=== PATIENT | male | born 1945 | race Caucasian/White ===

== ENCOUNTER 2018-07-22 07:15 | Inpatient (IN) | payer OTHER ==
[2018-07-22] MEDS ORDERED: oxyCODONE IR 5 MG TAB PO PRN (18:34)
[2018-07-22] MEDS ORDERED: ACETAMINOPHEN 325 MG TAB PO PRN (18:34)
[2018-07-22] MEDS ORDERED: ONDANSETRON 4 MG/2 ML VIAL IVP PRN (18:34)
[2018-07-22] MEDS ORDERED: ONDANSETRON DISINTEGRATING 4 MG TAB PO PRN (18:34)
[2018-07-22] MEDS ORDERED: HYDROmorphONE/DILAUDID 1 MG/ML INJ IVP PRN (19:04)
--- NOTE | 2018-07-22 19:11 | PDGENHP ---
Addendum entered and electronically signed by Heather Golden NP 07/22/18 19:35 : Update: Last alcohol drink was last night. He had a beer and champagne. Original Note: <Heather Golden - Last Filed: 07/22/18 19:31> History and Physical - Chief Complaint Oblique nondisplaced left femoral neck fracture s/p mechanical fall - History of Present Illness 72 y/o male presents as a direct admit from [facility] in [place] after enduring a mechanical fall w/injury. He was getting out of the shower, his bath mat slipped out from underneath him and he fell subsequently suffering an oblique nondisplaced left femoral neck fracture. Dr. Vazquez performed his right hip surgery 7 years ago and requested he do the same for this surgery therefore he was transferred to [facility] where Dr. Vazquez will evaluate pt in AM. Pt denies hitting his head or LOC, no FORD, vision changes. No pain to wrists/ elbows. No CP, SOB, fever or chills. Endorses the inability to place weight on his left lower extremity and 4-5/10 severity of dull aching pain. He is being admitted for treatment and monitoring. History Information - Allergies/Home Medication List Allergies/Adverse Reactions: NSAIDS (Non-Steroidal Anti-Inflamma [Nsaids] Allergy (Intermediate, Verified 12/02 19:13) HIVES/RASH meperidine HCl [From Demerol] Allergy (Mild, Verified 07/22/18 19:13) NAUSEA Home Medications: Lisinopril [Zestril 20 mg (*)] 20 mg PO HS 05/15/15 [Last Taken 07/21/18] Multivitamins [Multivitamin (*)] 1 tab PO HS 05/15/15 [Last Taken 07/21/18] Acetaminophen [Tylenol Arthritis] 650 mg PO DAILY PRN 07/22/18 [Last Taken Unknown] Aspirin [Aspirin 81mg (*)] 81 mg PO HS 07/22/18 [Last Taken 07/21/18] Atorvastatin Calcium [Lipitor 20 mg (*)] 20 mg PO HS 07/22/18 [Last Taken ] Ibuprofen [Motrin (*)] 200 mg PO DAILY PRN 07/22/18 [Last Taken Unknown] Primidone [Mysoline 50mg (RX)] 50 mg PO BID 07/22/18 [Last Taken 07/22/18 09:00] Sildenafil Citrate [Revatio 20 MG (*)] 20 mg PO DAILY PRN 07/22/18 [Last Taken 07/20/18] Valacyclovir HCl [Valtrex] 1,000 mg PO DAILY PRN 07/22/18 [Last Taken Unknown] I have personally reviewed and updated: family history, medical history, social history, surgical history - Past Medical History arthritis, cancer (Prostate ), hypertension, hyperlipidemia Additional medical history: Sciatica. Tremor - Surgical History Reports: cancer surgery (MOHS; radial prostatectomy) Additional surgical history: Laminectomy. Several orthopedic sx including foot , hand, hip and knee surgeries - Family History Positive for: CAD Additional family history: Multiple sclerosis - Social History Smoking Status: Never smoked Alcohol Use: Heavy (4-5 beers/day 5-6 days out of the week) Drug Use: None Additional social history: Adopted. Was at [employer] in [place] celebrating him and his 's 50th anniversary. Lives in [place]. Likes to hike and golf. Review of Systems Review of Systems: ROS: 10pt was reviewed & negative except for what was stated in HPI & below Physical Exam Physical Exam: Lab data and imaging were reviewed. WHITE BLOOD CELL COUNT 5.6 4.0-11.0 10*9/L RED BLOOD CELL COUNT, BLOOD 4.77 4.76-6.09 10*12/L HEMOGLOBIN 15.0 14.3-18.1 g/dL HEMATOCRIT 44.4 39.2-53.0 % MEAN CORPUSCULAR VOLUME 93.1 80.0-100.0 fL MEAN CORPUSCULAR HEMOGLOBIN 31.4 27.5-35.1 pg MEAN CORPUSCULAR HEMOGLOBIN CONCENTRATION 33.8 32.0-36.0 g/dL PLATELET COUNT 175 150-400 10*9/L RED CELL DISTRIBUTION WIDTH CV 13.6 11.7-14.2 % NRBC PERCENT 0.0 0 % NRBC ABSOLUTE 0.00 0 10*9/L NEUTROPHIL, SEGMENTED % (AUTO DIFFERENTIAL) 78.8 % LYMPHOCYTE % (AUTO DIFFERENTIAL) 13.1 % MONOCYTE % (AUTO DIFFERENTIAL) 6.8 % EOSINOPHIL % (AUTO DIFFERENTIAL) 0.7 % BASOPHIL % (AUTO DIFFERENTIAL) 0.4 % GRANULOCYTE, IMMATURE % (AUTO DIFFERENTIAL) 0.2 % NEUTROPHILS ABSOLUTE (AUTO DIFFERENTIAL) 4.4 1.8-6.6 10*9/L LYMPHOCYTES ABSOLUTE (AUTO DIFFERENTIAL) 0.7 1.0-4.8 Low 10*9/L MONOCYTES ABSOLUTE (AUTO DIFFERENTIAL) 0.4 0.2-0.9 10*9/L EOSINOPHILS ABSOLUTE (AUTO DIFFERENTIAL) 0.0 0.0-0.4 10*9/L BASOPHIL ABSOLUTE (AUTO DIFFERENTIAL) 0.0 0.0-0.2 10*9/L GRANULOCYTE, IMMATURE ABSOLUTE (AUTO DIFFERENTIAL) 0.0 0.0-0.1 10*9/L SODIUM -POCT 138 137-145 mmol/L POTASSIUM -POCT 4.4 3.5-5.5 mmol/L CHLORIDE -POCT 105 98-109 mmol/L BLOOD UREA NITROGEN -POCT 14 7-20 mg/dL GLUCOSE -POCT 113 60-100 High mg/dL CREATININE -POCT 1.0 0.6-1.3 mg/dL IONIZED CALCIUM - POCT ISTAT 4.8 4.5-5.3 mg/dL TCO2 ARTERIAL -POCT ISTAT 23 23-31 mmol/L ANION GAP -POCT 16 10-20 mmol/L EGFR NON -POCT >60 >=60 mL/min/1.73 "square meters" CXR: No acute cardiopulmonary process Hip/Pelvis x-ray: as noted in HPI w/ right hip hardware not affected and intact. Temp Pulse Resp BP Pulse Ox 36.8 C 74 16 185/90 H 95 07/22/18 18:00 07/22/18 18:00 07/22/18 18:00 07/22/18 18:00 07/22/18 18:00 Constitutional: no apparent distress, appears nourished, other (Pain w/movement) Eyes: PERRL, anicteric sclera, EOMI Ears, Nose, Mouth, Throat: moist mucous membranes, hearing normal, ears appear normal, no oral mucosal ulcers Cardiovascular: regular rate and rhythym, no murmur, rub, or gallop, No edema Peripheral Pulses: 2+: dorsalis-pedis (R), dorsalis-pedis (L) Respiratory: no respiratory distress, no rales or rhonchi, clear to auscultation Gastrointestinal: normoactive bowel sounds, soft, non-tender abdomen, no palpable masses Genitourinary: no bladder fullness, no bladder tenderness Skin: warm, normal color, no rashes or abrasions, no fluctuance, no induration, No mottled Musculoskeletal: pain with ROM (LLE; able to wiggle toes, +DF/PF, sensation intact. Pain in groin and radiates to lower back) Neurologic: AAOx3, sensation intact bilaterally, CN II-XII Intact Psychiatric: interacting appropriately, not anxious, not encephalopathic, thought process linear Lymph, Heme, Immunologic: no cervical LAD, no supraclavicular LAD Assessment & Plan Plan: 72 y/o male w/hx of HTN, HLD and sciatica presents as a direct admit from the [facility] in [place] ER d/t an injury w/mechanical fall subsequently fracturing his left femur. Dr. Vazquez replaced his right hip 7 years ago and he requested Dr. Vazquez perform the surgery hence pt being admitted to our facility. His vitals are the following: BP 185/90, HR 74, 16 resp, 95%RA 36.8. Labwork from [facility] unremarkable. #Left oblique nondisplaced femoral neck fracture -Ortho has been consulted. Dr. Vazquez to evaluate pt in AM and most likely perform surgery hence pt will be NPO at midnight tonight -Pain management PO/IVP PRN -NWB status to LLE -CBC/CMP/INR in AM -IS -PT/OT to evaluate and treat #Etoh abuse: Reports drinking 4-5 beers a night 5-6 days out of the week. -CIWA scale #HTN: cont to monitor. On lisinopril Diet: Regular, NPO at midnight tonight VTE ppx: SCDs Code: Full Dispo: Admit to inpatient <Nabila Chun - Last Filed: 07/22/18 23:07> History and Physical - History of Present Illness Review of Systems Review of Systems: Physical Exam Physical Exam: Temp Pulse Resp BP Pulse Ox 37.0 C 77 18 170/94 H 94 07/22/18 20:46 07/22/18 20:46 07/22/18 20:46 07/22/18 20:46 07/22/18 20:46 Assessment & Plan Plan: Patient seen and evaluated independently, care plan reviewed with RUBY Golden, agree with her asessement and plan as above, please see separate note for further details.
[2018-07-22] MEDS ORDERED: SILDENAFIL CITRATE 20 MG TAB PO PRN (19:27)
[2018-07-22] MEDS ORDERED: valACYclovir 500 MG TAB PO PRN (19:30)
[2018-07-22] MEDS ORDERED: FLUMAZENIL 0.5 MG/5 ML MDV IVP PRN (19:35)
[2018-07-22] MEDS ORDERED: LORazepam 2 MG/ML INJ IVP PRN (19:35)
[2018-07-22] MEDS: ATORVASTATIN CALCIUM 20 MG TAB PO SCH (20:16)
[2018-07-22] MEDS: LISINOPRIL 20 MG TAB PO SCH (20:16)
[2018-07-22] MEDS: MULTIVITAMINS 1 EACH TAB PO SCH (20:16)
[2018-07-22] MEDS: PRIMIDONE 50 MG TAB PO SCH (20:17)
--- NOTE | 2018-07-22 23:07 | HOSPPROG ---
Hospitalist Progress Note Assessment/Plan: 72 y/o male w/hx of HTN, HLD and sciatica presents as a direct admit from the [facility] in [place] s/p mechanical fall with acute left femur fracture and plan for surgical repair by Dr. Vazquez. #acute nondisplaced left femoral neck fracture -personally reviewed pelvic xray -ortho consulted, likely to OR in am, no reason to defer surgical intervention at this time for medical reasons -pain medication, pt/ot in post op period #Etoh abuse: risky drinking behaviors, denies withdrawal sxs -CIWA scale #HTN: cont lisinopril Diet: Regular, NPO at midnight tonight VTE ppx: SCDs Code: Full Dispo: Admit to inpatient Care plan reviewed with RUBY Golden, please see her note for further details. Objective: Vital Signs Temp Pulse Resp BP Pulse Ox 37.0 C 77 18 170/94 H 94 07/22/18 20:46 07/22/18 20:46 07/22/18 20:46 07/22/18 20:46 07/22/18 20:46 07/21/18 07/22/18 07/23/18 05:59 05:59 05:59 Output Total 275 Balance -275 ICD10 Worksheet Patient Problems: Problems Problem Status Onset Primary localized osteoarthritis of right knee Acute
[2018-07-23 05:24] LABS: PLATELET COUNT 181 10^3/uL (150-400)
[2018-07-23 05:31] LABS: INR 0.99 (0.83-1.16); PROTIME(PATIENT) 12.7 SEC (12.0-15.0)
[2018-07-23] MEDS ORDERED: ceFAZolin 2 GM/DEXTROSE 100 ML IV ONE (06:00)
[2018-07-23] MEDS ORDERED: DEXAMETHASONE 4 MG/ML VIAL IVP ONE (06:00)
[2018-07-23] MEDS ORDERED: FAMOTIDINE 20 MG TAB PO ONE (06:00)
[2018-07-23] MEDS ORDERED: TRANEXAMIC ACID 3,000 MG in NS (SYRINGE) 50 ML IRR ONE (06:00)
[2018-07-23] MEDS ORDERED: ACETAMINOPHEN 325 MG TAB PO ONE (06:00)
[2018-07-23] MEDS ORDERED: ROPIVACAINE 0.2% 80 MG, EPINEPHrine 0.2 MG, KETOROLAC TROMETHAMINE 30 MG in SYRINGE 0 ML IU ONE (06:00)
[2018-07-23] MEDS ORDERED: LR 1,000 ML IV ONE (06:05)
[2018-07-23] MEDS ORDERED: TRANEXAMIC ACID 3,000 MG/50 ML BAG IRR ONE (06:32)
[2018-07-23] MEDS ORDERED: MIDAZOLAM 2 MG/2 ML VIAL IVP ONE (07:05)
--- NOTE | 2018-07-23 07:07 | PDANEPAE ---
ANE Past Medical History - Cardiovascular History Hx Hypertension: Yes Hx Arrhythmias: No Hx Chest Pain: No Hx Coronary Artery / Peripheral Vascular Disease: No Hx CHF / Valvular Disease: No Hx Palpitations: No - Pulmonary History Hx COPD: No Hx Asthma/Reactive Airway Disease: No Hx Recent Upper Respiratory Infection: No Hx Oxygen in Use at Home: No Hx Sleep Apnea: No Sleep Apnea Screening Result - Last Documented: Positive - Neurologic History Hx Cerebrovascular Accident: No Hx Seizures: No Hx Dementia: No - Endocrine History Hx Diabetes: No Obesity: mild - Renal History Hx Renal Disorders: No - Liver History Hx Hepatic Disorders: No - Neurological & Psychiatric Hx Hx Neurological and Psychiatric Disorders: No - Cancer History Hx Cancer: Yes Cancer History Comment: PROSTATE - Congenital Disorder History Hx Congenital Disorders: No - GI History GERD: no Hx Gastrointestinal Disorders: Yes Gastrointestinal History Comment: DIVERTICULOSIS. PREV REMVL COLON POLYPS - Other Health History Other Health History: NEG - Chronic Pain History Chronic Pain: Yes (RT KNEE AND LUMBAR REGION) - Surgical History Prior Surgeries: RT TOTAL HIP 04/2015. RT KNEE SCOPE. CERVICAL FUSION. LAMINECTOMY L4-5. GENE CATARACTS. RADICAL PROSTATECTOMY. GENE SHLDR SCOPE. LT THUMB ANE Review of Systems Review of Systems: ANE Patient History - Allergies Allergies/Adverse Reactions: NSAIDS (Non-Steroidal Anti-Inflamma [Nsaids] Allergy (Intermediate, Verified 12/02 19:13) HIVES/RASH meperidine HCl [From Demerol] Allergy (Mild, Verified 07/22/18 19:13) NAUSEA - Home Medications Home medications: home medication list seen and reviewed Home Medications: Lisinopril [Zestril 20 mg (*)] 20 mg PO HS 05/15/15 [Last Taken 07/21/18] Multivitamins [Multivitamin (*)] 1 tab PO HS 05/15/15 [Last Taken 07/21/18] Acetaminophen [Tylenol Arthritis] 650 mg PO DAILY PRN 07/22/18 [Last Taken Unknown] Aspirin [Aspirin 81mg (*)] 81 mg PO HS 07/22/18 [Last Taken 07/21/18] Atorvastatin Calcium [Lipitor 20 mg (*)] 20 mg PO HS 07/22/18 [Last Taken ] Ibuprofen [Motrin (*)] 200 mg PO DAILY PRN 07/22/18 [Last Taken Unknown] Primidone [Mysoline 50mg (RX)] 50 mg PO BID 07/22/18 [Last Taken 07/22/18 09:00] Sildenafil Citrate [Revatio 20 MG (*)] 20 mg PO DAILY PRN 07/22/18 [Last Taken 07/20/18] Valacyclovir HCl [Valtrex] 1,000 mg PO DAILY PRN 07/22/18 [Last Taken Unknown] - NPO status NPO Status: no food or drink >8 hours NPO Since - Liquids (Date): 07/23/18 NPO Since - Liquids (Time): 00:00 NPO Since - Solids (Date): 07/23/18 NPO Since - Solids (Time): 00:00 - Anes Hx Anes Hx: no prior problems - Smoking Hx Smoking Status: Never smoked - Alcohol Use Alcohol Use: Heavy (4-5 beers/day 5-6 days out of the week) - Family Anes Hx Family Hx Anesthesia Complications: NEG ANE Labs/Vital Signs - Labs Result Diagrams: 07/23/18 04:35 07/23/18 04:35 - Vital Signs Blood Pressure: 164/86 Heart Rate: 74 Respiratory Rate: 16 O2 Sat (%): 93 Height: 182.88 cm Weight: 90.265 kg ANE Physical Exam - Airway Neck exam: FROM Mallampati Score: Class 2 Mouth exam: normal dental/mouth exam - Pulmonary Pulmonary: no respiratory distress, no rales or rhonchi, clear to auscultation - Cardiovascular Cardiovascular: regular rate and rhythym, no murmur, rub, or gallop - ASA Status ASA Status: II ANE Anesthesia Plan Anesthesia Plan: GA w LMA (Pt declines SAB.)
[2018-07-23] MEDS ORDERED: MIDAZOLAM 2 MG/2 ML VIAL ONE (07:08)
[2018-07-23] MEDS ORDERED: PROPOFOL 200 MG/20 ML VIAL ONE ×2 (07:15→07:44)
[2018-07-23] MEDS ORDERED: ONDANSETRON 4 MG/2 ML VIAL ONE (07:17)
[2018-07-23] MEDS ORDERED: DEXAMETHASONE 4 MG/ML VIAL ONE ×2 (07:17)
[2018-07-23] MEDS ORDERED: LIDOCAINE 2% 2 ML INJ ONE ×2 (07:37)
[2018-07-23] MEDS ORDERED: ESMOLOL HCL 100 MG/10 ML VIAL IV ONE (07:45)
[2018-07-23] MEDS ORDERED: DEXMEDETOMIDINE HCL 200 MCG in NS 50 ML IV ONE (07:48)
[2018-07-23] MEDS ORDERED: LABETALOL HCL 5 MG/ML 20 ML MDV IVP PRN (07:53)
[2018-07-23] MEDS ORDERED: ENALAPRILAT DIHYDRATE 1.25 MG/ML VIAL IVP PRN (07:53)
[2018-07-23] MEDS ORDERED: NALOXONE HCL 0.4 MG/ML INJ IVP PRN (07:53)
[2018-07-23] MEDS ORDERED: fentaNYL 100 MCG/2 ML INJ IVP PRN (07:53)
[2018-07-23] MEDS ORDERED: ONDANSETRON 4 MG/2 ML VIAL IVP PRN ×2 (07:53→08:44)
[2018-07-23] MEDS ORDERED: PROMETHAZINE HCL 25 MG/ML INJ IVP PRN ×2 (07:53→08:44)
[2018-07-23] MEDS ORDERED: HYDROCODONE/APAP 5/325 TAB PO PRN (07:53)
[2018-07-23] MEDS ORDERED: oxyCODONE IR 5 MG TAB PO PRN ×2 (07:53→08:44)
[2018-07-23] MEDS ORDERED: ACETAMINOPHEN 500 MG TAB PO PRN (07:53)
[2018-07-23] MEDS ORDERED: DIAZEPAM 5 MG/ML 1 ML SYR IVP PRN (07:53)
[2018-07-23] MEDS ORDERED: LR 500 ML IV PRN (07:53)
[2018-07-23] MEDS ORDERED: DEXMEDETOMIDINE HCL 400 MCG in NS 100 ML IV ONE (08:00)
[2018-07-23] MEDS ORDERED: ENALAPRILAT DIHYDRATE 2.5 MG/2 ML VIAL IVP ONE (08:07)
[2018-07-23] MEDS ORDERED: METOPROLOL TARTRATE 5 MG/5 ML INJ ONE (08:11)
[2018-07-23] MEDS ORDERED: METOCLOPRAMIDE 10 MG/2 ML VIAL IVP PRN (08:44)
[2018-07-23] MEDS ORDERED: PROMETHAZINE HCL 25 MG SUPPR PR PRN (08:44)
[2018-07-23] MEDS ORDERED: POLYETHYLENE GLYCOL 3350 17 GM PKT PO PRN (08:44)
[2018-07-23] MEDS ORDERED: BISACODYL 10 MG SUPP PR PRN (08:44)
[2018-07-23] MEDS ORDERED: diphenhydrAMINE 25 MG CAP PO PRN (08:44)
[2018-07-23] MEDS ORDERED: DIPHENOXYLATE/ATROPINE LOMOTIL 1 TAB PO PRN (08:44)
[2018-07-23] MEDS ORDERED: CYCLOBENZAPRINE 10 MG TAB PO PRN (08:44)
[2018-07-23] MEDS ORDERED: LACTULOSE 20 GM/30 ML UDCUP PO PRN (08:44)
[2018-07-23] MEDS ORDERED: TEMAZEPAM 15 MG CAP PO PRN (08:44)
[2018-07-23] MEDS ORDERED: MAGNESIUM HYDROXIDE 30 ML UDCUP PO PRN (08:44)
[2018-07-23] MEDS ORDERED: ONDANSETRON DISINTEGRATING 4 MG TAB PO PRN (08:44)
--- NOTE | 2018-07-23 08:44 | POSTOPPROG ---
Post Op Note Date of Operation: 07/23/18 Surgeon: Ian Vazquez Hollow Core Door Frame Assembler: Madelyn TUBBS Anesthesiologist: Dr. Rickey Moise Anesthesia: GET(General Endotracheal) Pre-op Diagnosis: left femur fracture Post-op Diagnosis: same Indication: left femur fracture Procedure: LTHA Findings: fracture of left femoral neck Inf/Abcess present in the surg proc area at time of surgery?: No EBL: 50-100
[2018-07-23] MEDS ORDERED: LR 1,000 ML IV SCH (09:00)
--- NOTE | 2018-07-23 09:02 | POSTANESTH ---
Post Anesthetic Evaluation Cardiovascular Status: Normal, Stable, Similar to Pre-Op Cond Respiratory Status: Normal, Stable, Similar to Pre-op Cond. Level of Consciousness/Mental Status: Can Participate in Eval, Mildly Sleepy, Arousable Pain Control: Adequate, Prn Tx Ordered Nausea/Vomiting Control: Adequate, Prn Tx Ordered Complications Possibly Related to Anesthesia: None Noted
--- NOTE | 2018-07-23 09:21 | PDMN ---
Medical Necessity Medical necessity: Pt meets inpt criteria per MD order and [facility], Hip Arthroplasty, MCR IP only list, A-2 days. 72 y/o admitted w/L nondisplaced femoral neck fx s/p mech fall, underwent surg intervention: L AINSLEY. Anticipate> 2MN for ongoing management of above.
[2018-07-23] MEDS: THIAMINE HCL 500 MG in NS 100 ML IV SCH (10:43)
[2018-07-23] MEDS: PRIMIDONE 50 MG TAB PO SCH ×2 (10:53→21:04)
[2018-07-23] MEDS: SENNOSIDES/DOCUSATE SODIUM TAB PO SCH ×2 (10:55→21:03)
[2018-07-23] MEDS ORDERED: ceFAZolin 2 GM/DEXTROSE 100 ML IV SCH (14:00)
--- NOTE | 2018-07-23 14:25 | HOSPPROG ---
Hospitalist Progress Note Assessment/Plan: 72 y/o male w/hx of HTN, HLD and sciatica presents as a direct admit from the [facility] in [place] s/p mechanical fall with acute left femur fracture and surgical repair by Dr. Vazquez. First encounter, chart reviewed. #acute nondisplaced left femoral neck fracture -POD#0 -pain medication, pt/ot in post op period #Etoh abuse: -risky drinking behaviors, denies withdrawal sxs -CIWA scale #HTN: -cont lisinopril Diet: Regular VTE ppx: SCDs Code: Full Dispo: Admit to inpatient Subjective: No pain. No specific complaints. Objective: Vital Signs Temp Pulse Resp BP Pulse Ox 37.0 C 74 17 106/50 L 92 07/23/18 13:06 07/23/18 13:06 07/23/18 13:06 07/23/18 13:06 07/23/18 13:06 Laboratory Results 07/23/18 04:35 07/23/18 04:35 07/22/18 07/23/18 07/24/18 05:59 05:59 05:59 Intake Total 300 795 Output Total 625 500 Balance -325 295 PT 12.7 SEC (12.0-15.0) 07/23/18 04:35 INR 0.99 (0.83-1.16) 07/23/18 04:35 - Physical Exam Constitutional: no apparent distress, appears nourished, not in pain Eyes: PERRL, anicteric sclera, EOMI Ears, Nose, Mouth, Throat: moist mucous membranes, hearing normal, ears appear normal Cardiovascular: regular rate and rhythym, No JVD, No edema Respiratory: no respiratory distress, no rales or rhonchi, reduced air movement Gastrointestinal: normoactive bowel sounds, No tenderness, No ascites Skin: warm, normal color, No mottled Musculoskeletal: joint tenderness, pain with ROM, generalized weakness Neurologic: AAOx3 Psychiatric: not anxious, not encephalopathic, poor memory ICD10 Worksheet Patient Problems: Problems Problem Status Onset Primary localized osteoarthritis of right knee Acute
--- NOTE | 2018-07-23 14:29 | ASMTCAGE ---
CAGE Do you feel you ought to Answers: No cut down on your drinking or drug use? Do people annoy you by Answers: No criticizing your drinking or drug use? Do you feel guilty about Answers: No your drinking or drug use? 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 Date Signed: 07/23/2018 02:28 PM Electronically Signed By:Germaine Hitchcock
--- NOTE | 2018-07-23 14:42 | ASMTCMCOM ---
CM Note CM Note Notes: CM spoke with pt in the room. Pt lives with and was admitted for hip fracture after a fall in the bathroom. Pt triggered CAGE screen upon admission because he states he drinks 4 - 6 beers a night. CAGE screen completed and pt has no concerns for alcohol abuse. ETOH resources provided for educational purposes. PT recommending outpatient rehab. Anticipate pt will discharge independently. CM to follow. D/C Plan: Independent Date Signed: 07/23/2018 02:41 PM Electronically Signed By:Germaine Hitchcock
[2018-07-23] MEDS ORDERED: ACETAMINOPHEN 325 MG TAB PO SCH (14:47)
[2018-07-23] MEDS: ceFAZolin 2 GM/DEXTROSE 100 ML IV SCH (17:18)
[2018-07-23] MEDS: ACETAMINOPHEN 325 MG TAB PO SCH ×2 (17:48→23:58)
[2018-07-23] MEDS: MULTIVITAMINS 1 EACH TAB PO SCH (21:03)
[2018-07-23] MEDS: ASPIRIN 81 MG CHEWABLE TAB PO SCH (21:04)
[2018-07-23] MEDS: LISINOPRIL 20 MG TAB PO SCH (21:04)
[2018-07-23] MEDS: ATORVASTATIN CALCIUM 20 MG TAB PO SCH (21:04)
[2018-07-23] MEDS: FAMOTIDINE 20 MG TAB PO SCH (21:04)
--- NOTE | 2018-07-23 21:08 | GCON ---
[f rep st] CONSULTATION ORTHOPEDIC CONSULTATION DATE OF CONSULTATION: 07/23/2018 REASON FOR CONSULTATION: Left femoral neck fracture. HISTORY OF PRESENT ILLNESS: The patient is a 72-year-old gentleman, well known to me, who sustained a left femoral neck fracture in [place] while celebrating his 50th anniversary. The patient was transferred up to here as he desired care, I had previously taken care of his right femo ral neck fracture and right total knee. He was comfortable. Was evaluated in the prep area. Left l ower extremity was examined. He had pain with external rotation. He was neurovascularly intact. MEDICATIONS: Please see medication list. IMAGING: X-rays were reviewed, which shows a left vertical, unstable femoral neck fracture. ASSESSMENT AND PLAN: The patient is a 72-year-old gentleman with an unstable left femoral neck fract ure. Discussed risks, benefits, operative and nonoperative interventions, arthroplasty ve rsus fixation. Decision was made to proceed with left total hip arthroplasty. Patient expressed und erstanding and informed consent was obtained after discussion of risks, which include bleeding, infec tion, damage to nerves and vessels, need for further surgery, risk for blood clots, blood clots going to his lungs, , stroke, heart attack, and , as well as risk for dislocation, fracture , and leg length discrepancy. The patient expressed understanding and signed the consent form. The plan will be to proceed with a left total hip arthroplasty. /[id number]/MODL
--- NOTE | 2018-07-23 22:28 | GOP ---
[f rep st] OPERATIVE REPORT DATE OF OPERATION: 07/23/2018 SURGEON: Zeb Vazquez MD TRAFFIC SAFETY ADMINISTRATOR: Germaine Morgan P.A.-C PREOPERATIVE DIAGNOSIS: Left hip femoral neck fracture. POSTOPERATIVE DIAGNOSIS: Left hip femoral neck fracture. PROCEDURE PERFORMED: Left total hip arthroplasty with x-ray. FINDINGS: ESTIMATED BLOOD LOSS: 200 cc. INDICATIONS: The patient has left femoral neck fracture. The patient understands the treatment options including continued non-operative care and has selected surgical intervention. The patient has decided to undergo total hip arthroplasty via the direct anterior approach, understanding the risks of the procedure including, but not limited to, neurovascular injury, infection, persistent pain, component wear and loosening, deep venous thrombosis, pulmonary embolism, limb length inequality, hip instability (including dislocation), and intra-operative fractures. DESCRIPTION OF PROCEDURE: After proper identification of the patient including verification and marking the surgical site, the patient was brought to the operating room and placed in the supine position. All bony prominences were well padded. Anesthesia was induced without complication and intravenous prophylactic antibiotics were administered prior to skin incision. The operative leg was placed in the Trumpf Arch table extension and the well leg in a Yellofin leg guerrero. The patient was prepped and draped in the usual sterile fashion. The C-arm was draped for intra-operative fluoroscopy to check acetabular position, femoral component position including leg length and femoral offset. Attention was then drawn to surgical exposure of the hip. An incision was made with a #10 Bard Andrés blade starting 3 cm lateral and 3 cm distal to the anterior superior iliac spine measuring 8-10 cm and coursing distally toward the greater trochanter. The skin and subcutaneous tissues were divided sharply down to the fascia ritika. The fascia ritika was incised in line with the skin incision exposing the underlying tensor fascia ritika muscle. The muscle was bluntly elevated from the fascia and the first extracapsular Cobra retractor was placed laterally at the junction of the superior femoral neck and greater trochanter. The lateral femoral circumflex vessels were identified, cauterized , and divided with the Aquamantys bipolar cautery. The deep investing fascia of the TFL was divided to allow proper mobilization of the muscle preventing damage during the retraction. The reflected head of the rectus femoris muscle was elevated off the anterior hip capsule and a medial Cobra retractor was placed just proximal to the lesser trochanter. The anterior capsulotomy was made sharply from the superolateral acetabulum to the saddle junction of the superior femoral neck and greater trochanter, then coursing inferomedial towards the lesser trochanter. The retractors were then placed in the intracapsular position for femoral neck osteotomy. Corresponding to pre-operative templating, the osteotomy was made with the oscillating saw carefully protecting the greater trochanter and soft tissues. The femoral head was removed from the acetabulum with a corkscrew and confirmed to be a femoral neck fracture. The Arch table extension was then placed in 40 degrees external rotation. Attention was then drawn to the acetabular preparation. After placement of the anterior and posterior Cobra retractors outside the labrum and intracapsular, the circumferential labrum was removed sharply. The foveal contents were then removed and hemostasis obtained with cautery. The first reamer selected was sized using the removed femoral head. Reaming began with medialization and then commenced in 2 mm increments at 45 degrees of abduction and 15 degrees of anteversion using fluoroscopic navigation. Reaming ceased 1 mm less than the definitive acetabular component and corresponded to the pre-operative templating. The final acetabular component was inserted using fluoroscopy to achieve proper orientation yielding excellent purchase and stability in the acetabulum. The final acetabular liner was then placed and its seating confirmed. Attention was then turned to the femur. The Arch table extension was placed in extension and adduction, delivering the osteotomized femoral neck into the wound. A 2-pronged femoral elevator was placed at the calcar and another at the tip of the greater trochanter. The posterolateral capsule was released with cautery allowing mobilization of the femur lateral and anterior for preparation. The external rotators were visualized and preserved. A curette and rongeur were used to open the starting point for broaching. Serial broaching started with the #0 broach and ended with the broach that exhibited excellent fit in the proximal femur. A change in pitch during mallet strikes was accompanied by the inability to advance the broach any further. The trial reduction was performed and fluoroscopic navigation was utilized to check limb length. Adjustments were made to equalize limb length accordingly. After the final trials were accepted they were removed and the wound was copiously lavaged. The femoral component was seated to the same depth as the final broach and the femoral head was impacted onto the clean trunnion. The hip was then reduced for the final time and once more fluoroscopy was used to check that limb length equality was achieved. The wound was irrigated and closed in layers, the fascia ritika with 2-0 Quill, the subcutaneous tissue with 2-0 Quill, and the skin with Dermabond. Sterile dressings were applied. Final sharps and sponge counts were accurate. The patient was then transferred to a hospital bed and brought to the recovery room in stable condition. IMPLANTS: Accolade II, size 7 at 127 acetabular component; a 56 mm titanium Trident II; liner is a Trident X3 36 mm; head is Biolox delta 36 mm +0.5. /[id number]/MODL MTDD
[2018-07-24] MEDS: ceFAZolin 2 GM/DEXTROSE 100 ML IV SCH (02:11)
[2018-07-24] MEDS: ACETAMINOPHEN 325 MG TAB PO SCH ×2 (05:11→10:01)
[2018-07-24 07:17] VITALS: BP 134/65
[2018-07-24] MEDS: SENNOSIDES/DOCUSATE SODIUM TAB PO SCH (07:32)
[2018-07-24] MEDS: FAMOTIDINE 20 MG TAB PO SCH (07:32)
[2018-07-24] MEDS: PRIMIDONE 50 MG TAB PO SCH (07:32)
[2018-07-24] MEDS: ASPIRIN 81 MG CHEWABLE TAB PO SCH (07:34)
--- NOTE | 2018-07-24 09:42 | SOAPPROG ---
[facility] Progress Note Assessment/Plan: Assessment: Patient is doing well, POD 1 s/p left AINSLEY for nondisplaced left femoral neck fracture Plan: Pain management: pain is well controlled on oral pain medications. VTE ppx: recommend aspirin 81 mg BID for 4 weeks, continue EDITH hose at home Anemia: level is expected initially postop. Asymptomatic. D/c planning: Patient has done well in PT and will be discharged to home today. Patient will have the support of his at home. He is familiar with the recovery due to having right AINSLEY several years ago. 07/24/18 09:40 07/24/18 09:48 Subjective: Patient states he is doing well and is ready to go home. He will have the support of his during his recovery. States he has medications at home to help with pain that are left over from previous surgeries and reports he may not need to fill the medications that we give him today. He denies shortness of breath, chest pain, fever, chills, nausea, vomiting. Objective: Vital Signs Temp Pulse Resp BP Pulse Ox 36.3 C 69 17 134/65 H 98 07/24/18 07:17 07/24/18 07:17 07/24/18 07:17 07/24/18 07:17 07/24/18 07:17 Laboratory Results 07/24/18 04:19 07/24/18 04:19 07/23/18 07/24/18 07/25/18 05:59 05:59 05:59 Intake Total 300 1745 Output Total 625 775 Balance -325 970 PT 12.7 SEC (12.0-15.0) 07/23/18 04:35 INR 0.99 (0.83-1.16) 07/23/18 04:35 Patient is sitting comfortably in the chair in his room, no acute distress. LLE : Wound dressing is clean, dry and intact. Lower leg compartments are soft and nontender. He can DF and PF the left foot and great toe. Grossly NVI distally. ICD10 Worksheet Patient Problems: Problems Problem Status Onset Nondisplaced fracture of neck of left femur Acute Primary localized osteoarthritis of right knee Acute
--- NOTE | 2018-07-24 09:54 | PDDCSUM ---
Discharge Summary Discharge Summary: Date of Admission: July 22, 2018 Date of Discharge: July 24, 2018 Pre-operative diagnosis: Nondisplaced left femoral neck fracture Principal procedure performed: Left total hip arthroplasty HPI: Patient is a 72 yo male who was in [place] celebrating his wedding anniversary. He slipped while getting out of the shower and sustained a nondisplaced left femoral neck fracture. He is a known patient of Dr. Vazquez' virgen and has had right AINSLEY several years ago. Patient requested Dr. Vazquez perform his left hip surgery. Therefore he was transferred to [facility] and was a direct admit from [facility] in [place]. X-rays revealed a nondisplaced left femoral neck fracture. Hospital Course: Patient was admitted on July 22, 2018 and his surgery was performed the following morning on July 23, 2018. His surgery was uncomplicated. Patient was transferred to the recovery room and then orthopedic floor. Post-operatively he was afebrile and had stable vital signs. His neurovascular status, H&H, vitals signs were monitored on a regular basis. He participated in PT. On the day of discharge July 24, 2018 he has remained afebrile, vital signs stable, most recent H&H is 11.7/35.7. He is tolerating an oral diet, voiding well. Left hip dressings are clean, dry and intact. Left calf is soft and nontender. He can actively DF, PF left foot and great toe. Grossly NVI distally. Post-operative X-rays reveal anatomic position with no fracture or lucency. He reports feeling well enough to go home and he will have the support of his . Patient will be WBAT and will follow anterior total hip precautions. He will work on home exercises. Patient will continue with aspirin 81 mg BID for VTE ppx. He will follow up with Dr. Vazquez's office 3 weeks from yesterday. Patient is to seek medical attention for increasing redness, swelling, drainage or discharge.
[2018-07-24] MEDS: THIAMINE HCL 500 MG in NS 100 ML IV SCH (09:58)
--- NOTE | 2018-07-24 12:31 | HOSPPROG ---
Hospitalist Progress Note Assessment/Plan: 72 y/o male w/hx of HTN, HLD and sciatica presents as a direct admit from the [facility] in [place] s/p mechanical fall with acute left femur fracture and surgical repair by Dr. Vazquez. #acute nondisplaced left femoral neck fracture -POD#1 -pain medication, pt/ot in post op period #Etoh abuse: -risky drinking behaviors, denies withdrawal sxs -CIWA scale #HTN: -cont lisinopril Diet: Regular VTE ppx: SCDs Code: Full Dispo: Home today per ortho Subjective: Feeling well. Some pain with movement. Objective: Vital Signs Temp Pulse Resp BP Pulse Ox 36.3 C 69 17 134/65 H 98 07/24/18 07:17 07/24/18 07:17 07/24/18 07:17 07/24/18 07:17 07/24/18 07:17 Laboratory Results 07/24/18 04:19 07/24/18 04:19 07/23/18 07/24/18 07/25/18 05:59 05:59 05:59 Intake Total 300 1745 Output Total 625 775 Balance -325 970 PT 12.7 SEC (12.0-15.0) 07/23/18 04:35 INR 0.99 (0.83-1.16) 07/23/18 04:35 - Physical Exam Constitutional: no apparent distress, appears nourished Eyes: PERRL, anicteric sclera Ears, Nose, Mouth, Throat: moist mucous membranes, hearing normal Cardiovascular: No JVD, No edema Respiratory: no respiratory distress, reduced air movement Gastrointestinal: No tenderness, No ascites Skin: warm, normal color Musculoskeletal: joint tenderness, pain with ROM, generalized weakness Neurologic: AAOx3 Psychiatric: interacting appropriately, not anxious ICD10 Worksheet Patient Problems: Problems Problem Status Onset Nondisplaced fracture of neck of left femur Acute Primary localized osteoarthritis of right knee Acute
[2018-07-26] MEDS ORDERED: THIAMINE HCL 100 MG TAB PO SCH (09:00)
== END 2018-07-24 12:10 | disposition home or self-care (01) | DRG 470 ==
LOC: F3N 18:00
PROVIDERS: ADMIT Internal Medicine; ATTEND Internal Medicine
PROC: 0SRB04A Replacement of Left Hip Joint with Ceramic on Polyethylene Synthetic Substitute, Uncemented, Open Approach (ICD-10-PCS; principal; 2018-07-23 07:15)
DX: S72.335A Nondisplaced oblique fracture of shaft of left femur, initial encounter for closed fracture (principal); W01.0XXA Fall on same level from slipping, tripping and stumbling without subsequent striking against object, initial encounter; Y92.012 Bathroom of single-family (private) house as the place of occurrence of the external cause; F10.10 Alcohol abuse, uncomplicated; I10 Essential (primary) hypertension; G47.30 Sleep apnea, unspecified; Z96.641 Presence of right artificial hip joint; Z85.46 Personal history of malignant neoplasm of prostate
CPT/HCPCS: 97110-GP; 97116-GP; 97161-GP; 97166-GO; J0171; J0690; J1100; J1885; J2250; J2270; J2405; J2704; J2795; J3411